=== PATIENT | female | born 1985 | race Caucasian/White ===

== ENCOUNTER → 2017-10-15 | Outpatient (CLI) | payer MEDICARE, MEDICAID ==
[2015-04-20 10:33] VITALS: BMI 37.1
[~2017-10-15] MED LIST: ACET-2031 PO; AMOX-559 PO; AZIT-101 PO; AZIT500V14 PO; CHOL10005 PO; CLOZ100T PO; CLOZ100T14 PO; CLOZ100T37 PO; DESM0.2T15 PO; DOCU-202 PO; DOCU100T13 PO; ESOM20CA31 PO; ETHI1TAB PO; HYD2 PO; HYDR2TAB4 PO; HYDR2TAB42 PO; HYDR2TAB74 PO; IBU800 PO; IBUP800T37 PO; LINA145C PO; LOR1 PO; LOR5/325 PO; LORA-633 PO; MED10 PO; METO5TAB75 PO; MULT-1379 PO; OMEG500C7 PO; ONDA-2 PO; ONDA4TAB PO; ONDA4TAB97 PO; ONDA8TAB98 PO; PRE20 PO; PRED20TA6 PO; PROM-110 PO; PROM25SU9 RC; TRAM-420 PO; [UNRECOGNIZED DRUG - CODE] PO; [UNRECOGNIZED DRUG - CODE] PO; [UNRECOGNIZED DRUG - CODE] PO; [UNRECOGNIZED DRUG - CODE] PO
[2017-10-15 15:41] LABS: PLATELET COUNT, AUTOMATED 247 K/uL (150-450)
== END ==
LOC: LAB 14:50
PROVIDERS: ATTEND Registered Nurse Psychiatric/Mental Health
DX: F25.1 Schizoaffective disorder, depressive type (principal)
CPT/HCPCS: 36415; 85025

== ENCOUNTER → 2017-11-17 | Outpatient (CLI) | payer MEDICARE, MEDICAID ==
[2015-04-20 10:33] VITALS: BMI 37.1
[2017-11-17 11:34] LABS: PLATELET COUNT, AUTOMATED 278 K/uL (150-450)
[2017-11-17 11:59] LABS: LDL CHOLESTEROL 80 mg/dl
== END ==
LOC: LAB 10:36
PROVIDERS: ATTEND Psychiatry & Neurology Psychiatry
DX: Z51.81 Encounter for therapeutic drug level monitoring (principal); Z79.899 Other long term (current) drug therapy; E66.9 Obesity, unspecified
CPT/HCPCS: 36415; 82040; 82247; 82310; 82374; 82435; 82465; 82565; 82947; 83036; 83718; 84075; 84132; 84155; 84295; 84439; 84443; 84450; 84460; 84478; 84481; 84520; 85025

== ENCOUNTER → 2017-11-17 | Outpatient (CLI) | payer MEDICARE, MEDICAID ==
[2015-04-20 10:33] VITALS: BMI 37.1
== END ==
LOC: LAB 10:27
PROVIDERS: ATTEND Registered Nurse Psychiatric/Mental Health
DX: F25.1 Schizoaffective disorder, depressive type (principal)

== ENCOUNTER → 2017-12-12 | Outpatient (CLI) | payer MEDICARE, MEDICAID ==
[2015-04-20 10:33] VITALS: BMI 37.1
== END ==
LOC: LAB 09:33
PROVIDERS: ATTEND Registered Nurse Psychiatric/Mental Health
DX: F25.1 Schizoaffective disorder, depressive type (principal)
CPT/HCPCS: 36415; 85027

== ENCOUNTER → 2018-01-09 | Outpatient (CLI) | payer MEDICARE, MEDICAID ==
[2015-04-20 10:33] VITALS: BMI 37.1
[2018-01-09 16:11] LABS: PLATELET COUNT, AUTOMATED 267 K/uL (150-450)
== END ==
LOC: LAB 15:47
PROVIDERS: ATTEND Psychiatry & Neurology Psychiatry
DX: Z51.81 Encounter for therapeutic drug level monitoring (principal); Z79.899 Other long term (current) drug therapy
CPT/HCPCS: 36415; 85025

== ENCOUNTER → 2018-02-05 | Outpatient (CLI) | payer MEDICARE, MEDICAID ==
[2015-04-20 10:33] VITALS: BMI 37.1
[2018-02-05 14:15] LABS: PLATELET COUNT, AUTOMATED 264 K/uL (150-450)
== END ==
LOC: LAB 13:51
PROVIDERS: ATTEND Psychiatry & Neurology Psychiatry
DX: Z79.899 Other long term (current) drug therapy (principal); F25.1 Schizoaffective disorder, depressive type
CPT/HCPCS: 36415; 85025

== ENCOUNTER → 2018-03-10 | Outpatient (CLI) | payer MEDICARE, MEDICAID ==
[2015-04-20 10:33] VITALS: BMI 37.1
[2018-03-10 13:38] LABS: PLATELET COUNT, AUTOMATED 251 K/uL (150-450)
== END ==
LOC: LAB 08:00
PROVIDERS: ATTEND Psychiatry & Neurology Psychiatry
DX: F25.1 Schizoaffective disorder, depressive type (principal)
CPT/HCPCS: 36415; 85025

== ENCOUNTER → 2018-04-10 | Outpatient (CLI) | payer MEDICARE, MEDICAID ==
[2015-04-20 10:33] VITALS: BMI 37.1
[2018-04-10 12:14] LABS: PLATELET COUNT, AUTOMATED 255 K/uL (150-450)
== END ==
LOC: LAB 11:36
PROVIDERS: ATTEND Psychiatry & Neurology Psychiatry
DX: F25.1 Schizoaffective disorder, depressive type (principal); Z79.899 Other long term (current) drug therapy
CPT/HCPCS: 36415; 85025

== ENCOUNTER → 2018-05-07 | Outpatient (CLI) | payer MEDICARE, MEDICAID ==
[2015-04-20 10:33] VITALS: BMI 37.1
[2018-05-07 13:38] LABS: PLATELET COUNT, AUTOMATED 272 K/uL (150-450)
== END ==
LOC: LAB 13:17
PROVIDERS: ATTEND Psychiatry & Neurology Psychiatry
DX: F25.1 Schizoaffective disorder, depressive type (principal); Z79.899 Other long term (current) drug therapy
CPT/HCPCS: 36415; 85025

== ENCOUNTER → 2018-06-29 | Outpatient (CLI) | payer MEDICARE, MEDICAID ==
[2015-04-20 10:33] VITALS: BMI 37.1
[2018-06-29 10:15] LABS: PLATELET COUNT, AUTOMATED 246 K/uL (150-450)
== END ==
LOC: LAB 10:02
PROVIDERS: ATTEND Psychiatry & Neurology Psychiatry
DX: F25.1 Schizoaffective disorder, depressive type (principal); Z79.899 Other long term (current) drug therapy
CPT/HCPCS: 36415; 85025

== ENCOUNTER → 2018-07-31 | Outpatient (CLI) | payer MEDICARE, MEDICAID ==
[2015-04-20 10:33] VITALS: BMI 37.1
[2018-07-31 09:40] LABS: PLATELET COUNT, AUTOMATED 246 K/uL (150-450)
== END ==
LOC: LAB 09:05
PROVIDERS: ATTEND Psychiatry & Neurology Psychiatry
DX: F25.1 Schizoaffective disorder, depressive type (principal); Z79.899 Other long term (current) drug therapy
CPT/HCPCS: 36415; 85025

== ENCOUNTER → 2018-08-28 | Outpatient (CLI) | payer MEDICARE, MEDICAID ==
[2015-04-20 10:33] VITALS: BMI 37.1
[2018-08-28 14:23] LABS: PLATELET COUNT, AUTOMATED 255 K/uL (150-450)
== END ==
LOC: LAB 11:59
PROVIDERS: ATTEND Psychiatry & Neurology Psychiatry
DX: Z51.81 Encounter for therapeutic drug level monitoring (principal); F25.1 Schizoaffective disorder, depressive type; Z79.899 Other long term (current) drug therapy
CPT/HCPCS: 36415; 85025

== ENCOUNTER → 2018-09-24 | Outpatient (CLI) | payer MEDICARE, MEDICAID ==
[2015-04-20 10:33] VITALS: BMI 37.1
[2018-09-24 12:59] LABS: PLATELET COUNT, AUTOMATED 271 K/uL (150-450)
== END ==
LOC: LAB 12:32
PROVIDERS: ATTEND Psychiatry & Neurology Psychiatry
DX: F25.1 Schizoaffective disorder, depressive type (principal); Z79.899 Other long term (current) drug therapy
CPT/HCPCS: 36415; 85025

== ENCOUNTER 2018-10-24 14:20 | Emergency (ER) | payer MEDICARE, MEDICAID ==
[2015-04-20 10:33] VITALS: Wt 113.4 kg
--- NOTE | 2018-10-24 14:25 | ER Report ---
History and Physical Time Seen By MD: 14:25 HPI/ROS CHIEF COMPLAINT: Midsternal chest pain with radiation to the lateral lower ribs HISTORY OF PRESENT ILLNESS: Patient is a 33-year-old female here with complaints of midsternal chest pain, radiation to the bilateral lower lateral ribs, intermittent shortness of breath. Patient reports that she was diagnosed with costochondritis however she has been taking Aleve without relief of symptoms. King aceves reports that her pain has been present for the last several days and has not been improving. She is noted to be tachycardic at 115 at time of evaluation. Patient is a history of schizoaffective disorder, but denies DVT, PE, cardiac disease. REVIEW OF SYSTEMS: Constitutional: No fever, no chills. Eyes: No discharge. ENT: No sore throat. Cardiovascular: + chest pain, rapid heart rate Respiratory: No cough, + shortness of breath. Gastrointestinal: No abdominal pain, no vomiting. Genitourinary: No hematuria. Musculoskeletal: No back pain. Skin: No rashes. Neurological: No headache. Allergies: Coded Allergies: codeine (Verified Allergy, Intermediate, NAUSEA, ITCHING, 07/24/17) hydrocodone (Unverified Allergy, Intermediate, ITCHING, NAUSEA, 07/24/17) oxycodone (Unverified Allergy, Intermediate, ITCHING, NAUSEA, 07/24/17) propoxyphene (Verified Allergy, Intermediate, ITCHING, NAUSEA, 07/24/17) hydromorphone (Verified Allergy, Mild, nausea, emesis, itching, 08/11/17) Home Meds Active Scripts Naproxen (NAPROXEN) 250 Mg Tablet, 500 MG PO BID, #30 TAB Prov:JONY JENSEN DO 10/24/18 Prednisone (PREDNISONE) 20 Mg Tablet, 60 MG PO QDAY for 4 Days, #12 TAB Prov:JONY JENSEN DO 10/24/18 Tramadol Hcl (TRAMADOL HCL) 50 Mg Tablet, 50 MG PO Q6H PRN for PAIN, #10 TAB 0 Refills Prov:JONY JENSEN DO 10/24/18 Reported Medications Escitalopram Oxalate (LEXAPRO) 20 Mg Tablet, PO QDAY, TAB 10/24/18 Linaclotide (LINZESS) 145 Mcg Capsule, 145 MCG PO QDAY, CAPSULE 01/03/17 Esomeprazole Magnesium (NEXIUM) 20 Mg Capsule.dr, 1 CAP PO QDAY, CAP 03/29/15 Clozapine (FAZACLO 100 MG TABDP) 100 Mg Tabdp, 500 MG PO QHS 07/10/12 Discontinued Scripts Hydromorphone Hcl (DILAUDID) 2 Mg Tablet, 2 MG PO Q6H PRN for PAIN, #6 TAB-CAP Prov:MICHAEL NG DIRECTOR PEDIATRIC 07/24/17 Ondansetron (ZOFRAN ODT) 4 Mg Tab.rapdis, 4 MG PO Q6H PRN for NAUSEA/VOMITING, #20 TAB.ANN MARIE Prov:MICHAEL NG DIRECTOR PEDIATRIC 07/24/17 Hx Smoking: No Smoking Status: Never Smoker Exposure to Second Hand Smoke?: No Hx Substance Use Disorder: No Hx Alcohol Use: No Constitutional Vital Sign - Last 24 Hours 10/24/18 14:25 Pulse 117 Resp 20 B/P (MAP) 126/83 Pulse Ox 93 Physical Exam General Appearance: The patient is alert, has no immediate need for airway protection and no signs of toxicity. No acute distress Eyes: Pupils equal and round no pallor or injection. ENT, Mouth: Mucous membranes are moist. Respiratory: There are no retractions, lungs are clear to auscultation. Cardiovascular: Rapid heart rate and regular rhythm. + Midsternal chest wall tenderness on palpation Gastrointestinal: Abdomen is soft and non tender, no masses, bowel sounds normal. Neurological: No focal neurological deficits Skin: Warm and dry, no rashes. Musculoskeletal: Neck is supple non tender. Extremities are nontender, nonswollen and have full range of motion. DIFFERENTIAL DIAGNOSIS: After history and physical exam differential diagnosis was considered for chest pain including but not limited to myocardial ischemia, pericarditis pulmonary embolus, chest wall pain, pleural inflammation and pulmonary infectious causes. Medical Decision Making Data Points Result Diagram: 10/24/18 1432 10/24/18 1432 Laboratory Hematology Test 10/24/18 14:32 Red Blood Count 4.64 M/uL (4.17-5.56) Mean Corpuscular Volume 79.9 fL (80.0-96.0) Mean Corpuscular Hemoglobin 26.0 pg (26.0-33.0) Mean Corpuscular Hemoglobin Concent 32.6 g/dL (32.0-36.0) Red Cell Distribution Width 18.2 % (11.5-14.5) Mean Platelet Volume 7.9 fL (7.2-11.1) Neutrophils (%) (Auto) 54.5 % (39.4-72.5) Lymphocytes (%) (Auto) 36.4 % (17.6-49.6) Monocytes (%) (Auto) 8.2 % (4.1-12.4) Eosinophils (%) (Auto) 0.2 % (0.4-6.7) Basophils (%) (Auto) 0.7 % (0.3-1.4) Nucleated RBC Relative Count (auto) 0.2 /100WBC Neutrophils # (Auto) 3.5 K/uL (2.0-7.4) Lymphocytes # (Auto) 2.3 K/uL (1.3-3.6) Monocytes # (Auto) 0.5 K/uL (0.3-1.0) Eosinophils # (Auto) 0.0 K/uL (0.0-0.5) Basophils # (Auto) 0.0 K/uL (0.0-0.1) Nucleated RBC Absolute Count (auto) 0.01 K/uL D-Dimer Quantitative (PE/DVT) 0.70 ug/ml (0-0.50) Sodium Level 142 mmol/L (137-145) Potassium Level 4.4 mmol/L (3.5-5.0) Chloride Level 111 mmol/L (98-107) Carbon Dioxide Level 22 mmol/L (22-31) Blood Urea Nitrogen 11 mg/dl (7-18) Creatinine 0.60 mg/dl (0.52-1.04) Glomerular Filtration Rate Calc > 60.0 Random Glucose 123 mg/dl (75-110) Calcium Level 8.5 mg/dl (8.4-10.2) Total Bilirubin 0.2 mg/dl (0.2-1.3) Aspartate Amino Transf (AST/SGOT) 26 U/L (0-35) Alanine Aminotransferase (ALT/SGPT) 25 U/L (0-56) Alkaline Phosphatase 208 U/L (0-126) Troponin I < 0.012 ng/ml Total Protein 7.1 g/dl (6.3-8.2) Albumin 4.0 g/dl (3.5-5.0) Chemistry Test 10/24/18 14:32 White Blood Count 6.4 k/uL (4.5-11.0) Red Blood Count 4.64 M/uL (4.17-5.56) Hemoglobin 12.1 g/dL (12.0-16.0) Hematocrit 37.1 % (34.0-47.0) Mean Corpuscular Volume 79.9 fL (80.0-96.0) Mean Corpuscular Hemoglobin 26.0 pg (26.0-33.0) Mean Corpuscular Hemoglobin Concent 32.6 g/dL (32.0-36.0) Red Cell Distribution Width 18.2 % (11.5-14.5) Platelet Count 292 K/uL (150-450) Mean Platelet Volume 7.9 fL (7.2-11.1) Neutrophils (%) (Auto) 54.5 % (39.4-72.5) Lymphocytes (%) (Auto) 36.4 % (17.6-49.6) Monocytes (%) (Auto) 8.2 % (4.1-12.4) Eosinophils (%) (Auto) 0.2 % (0.4-6.7) Basophils (%) (Auto) 0.7 % (0.3-1.4) Nucleated RBC Relative Count (auto) 0.2 /100WBC Neutrophils # (Auto) 3.5 K/uL (2.0-7.4) Lymphocytes # (Auto) 2.3 K/uL (1.3-3.6) Monocytes # (Auto) 0.5 K/uL (0.3-1.0) Eosinophils # (Auto) 0.0 K/uL (0.0-0.5) Basophils # (Auto) 0.0 K/uL (0.0-0.1) Nucleated RBC Absolute Count (auto) 0.01 K/uL D-Dimer Quantitative (PE/DVT) 0.70 ug/ml (0-0.50) Glomerular Filtration Rate Calc > 60.0 Calcium Level 8.5 mg/dl (8.4-10.2) Total Bilirubin 0.2 mg/dl (0.2-1.3) Aspartate Amino Transf (AST/SGOT) 26 U/L (0-35) Alanine Aminotransferase (ALT/SGPT) 25 U/L (0-56) Alkaline Phosphatase 208 U/L (0-126) Troponin I < 0.012 ng/ml Total Protein 7.1 g/dl (6.3-8.2) Albumin 4.0 g/dl (3.5-5.0) Coagulation Test 10/24/18 14:32 D-Dimer Quantitative (PE/DVT) 0.70 ug/ml EKG/Imaging EKG Interpretation 12 lead EKG: Sinus tachycardia, rate 111, QTC 443, no ischemic changes. Rhythm: Sinus tachycardia [place]: normal QRS: normal ST segments: normal Monitor Interpretation: Sinus Tachycardia Imaging Location: [facility] Patient: Alla Echeverria : 1985 Visit/Account:[id number] Date of Sevice: 10/24/2018 CHEST PA LAT COMPARISON: 07/24/2017 HISTORY: Chest Pain FINDINGS: CARDIAC/VASC: No cardiac silhouette abnormality or cardiomegaly. Unremarkable pulmonary vasculature. MEDIASTINUM: No visible mass or adenopathy. LUNGS/PLEURA: No pneumothorax. No significant pulmonary parenchymal abnormalities. No effusion or pleural thickening. BONES: No fracture or visible bony lesion. OTHER:Negative. IMPRESSION: No acute cardiopulmonary process. ED Course/Re-evaluation Clinical Indication for ER IV: Hydration, IV Access ED Course Patient is a 33-year-old female here with complaints of chest pain, which she describes as being caused by her costochondritis which she has recurrent ep isodes periodically. Patient describes the pain as midsternal with radiation to lateral ribs bilaterally. She reports that the pain is been ongoing for the past several days, is tender on palpation of the chest and is currently not relieved by naproxen. EKG showed sinus tachycardia with a rate of 111. Chest x-ray showed no acute pulmonary findings. Patient was given intravenous Tylenol, normal ryder ine bolus, and prednisone. D-dimer came back elevated at 0.[address] PE study which was negative for pulmonary embolism. Patient was placed on a total of a 5 day course of prednisone 60 mg, NSAIDs not to exceed 500 mg of naproxen twice daily, tramadol for breakthrough pain. Decision to Disposition Date: Oct 24, 2018 Decision to Disposition Time: 16:39 Depart Departure Latest Vital Signs Vital Signs Date Time Temp Pulse Resp B/P (MAP) Pulse Ox O2 Delivery O2 Flow Rate FiO2 10/24/18 14:25 117 20 126/83 93 Impression: Primary Impression: Chest wall pain Condition: Improved Disposition: HOME OR SELF-CARE Referrals: JANES PACHECO DO (PCP) New Scripts Naproxen (NAPROXEN) 250 Mg Tablet 500 MG PO BID, #30 TAB Prov: JONY JENSEN DO 10/24/18 Prednisone (PREDNISONE) 20 Mg Tablet 60 MG PO QDAY for 4 Days, #12 TAB Prov: JONY JENSEN DO 10/24/18 Tramadol Hcl (TRAMADOL HCL) 50 Mg Tablet 50 MG PO Q6H PRN for PAIN, #10 TAB 0 Refills Prov: JONY JENSEN DO 10/24/18 Patient Instructions: Chest Wall Pain (ED) Additional Instructions: Please drink plenty of water. Please take 60 mg of prednisone daily for the next 4 days for a complete course of 5 days of prednisone burst therapy. You may take naproxen up to 500 mg twice daily please do not exceed this dose. He may take 1 tramadol every 8 hours as needed for breakthrough pain control. Please follow up closely with her family doctor. Please return promptly if he develops chest pain, difficulty breathing, fevers or chills, cough, nausea, vomiting JONY JENSEN DO Oct 24, 2018 14:25
[2018-10-24] MEDS ORDERED: ESCI20TA38 PO (14:30)
[2018-10-24] MEDS ORDERED: NS(*) 0.9% 1000 ML BAG 1,000 ML IV ONE (14:44)
[2018-10-24] MEDS ORDERED: ACETAMINOPHEN(*)1000 MG/100 ML 100 ML IVPB ONE (14:45)
--- NOTE | 2018-10-24 14:49 | EKG ---
FACILITY: [facility] PATIENT NAME: ROSENDA MIRANDA : [id number] MR: [id number] V: [id number] EXAM DATE: ORDERING PHYSICIAN: JONY JENSEN TECHNOLOGIST: SONIA Test Reason : HIGH HR Blood Pressure : / mmHG Vent. Rate : 111 BPM Atrial Rate : 111 BPM P-R Int : 136 ms QRS Dur : 078 ms QT Int : 326 ms P-R-T Axes : 027 014 021 degrees QTc Int : 443 ms Sinus tachycardia Nonspecific T wave abnormality Abnormal ECG When compared with ECG of 24-JUL-2017 12:04, No significant change was found Confirmed by BRENT SALAZAR ([id number]) on 10/24/2018 8:04:51 PM Referred By: CAMILA Confirmed By:BRENT SALAZAR
[2018-10-24 14:51] LABS: PLATELET COUNT, AUTOMATED 292 K/uL (150-450)
--- NOTE | 2018-10-24 15:23 | RADIOLOGY IMAGING REPORT ---
FACILITY: [facility] [place] PATIENT NAME: Alla Echeverria : 1985 MR: [id number] V: [id number] EXAM DATE: ORDERING PHYSICIAN: JONY JENSEN TECHNOLOGIST: Location: [facility] - [place], [place] Patient: Alla Echeverria : 1985 Visit/Account:[id number] Date of Sevice: 10/24/2018 CHEST PA LAT COMPARISON: 07/24/2017 HISTORY: Chest Pain FINDINGS: CARDIAC/VASC: No cardiac silhouette abnormality or cardiomegaly. Unremarkable pulmonary vasculatu re. MEDIASTINUM: No visible mass or adenopathy. LUNGS/PLEURA: No pneumothorax. No significant pulmonary parenchymal abnormalities. No effusion or p leural thickening. BONES: No fracture or visible bony lesion. OTHER:Negative. IMPRESSION: No acute cardiopulmonary process. Report Dictated By: Eddie Lopez at 10/24/2018 3:18 PM Report E-Signed By: Eddie Lopez at 10/24/2018 3:19 PM [id number]
[2018-10-24] MEDS ORDERED: predniSONE 20 MG TAB PO ONE (15:25)
[2018-10-24] MEDS ORDERED: IOPAMIDOL 76% 100 ML INFUS BTL 100 ML ONE (16:04)
[2018-10-24] MEDS ORDERED: NS(*) 0.9% 50 ML BAG 50 ML ONE (16:04)
--- NOTE | 2018-10-24 16:31 | RADIOLOGY IMAGING REPORT ---
FACILITY: [facility] [place] PATIENT NAME: Alla Echeverria : 1985 MR: [id number] V: [id number] EXAM DATE: ORDERING PHYSICIAN: JONY JENSEN TECHNOLOGIST: [place] [facility] [place] Alla Echeverria : 1985 Visit/Account:[id number] Date of Sevice: 10/24/2018 EXAMINATION: CTA of the chest with IV contrast HISTORY: Chest pain, shortness of breath. TECHNIQUE: Pulmonary embolus protocol - Thin axial CT images of the chest were obtained with IV con trast during maximal pulmonary arterial opacification. Reconstruction of the source data includes mul tiplanar 2D coronal and sagittal reconstructed images, and 3D coronal and sagittal MIP images. Repres entative images have been stored on PACS. One of the following dose optimization techniques was utilized in the performance of this exam: Autom ated exposure control; adjustment of the mA and/or kV according to the patient's size; or use of an i terative reconstruction technique. Specific details can be referenced in the facility's radiology C T exam operational policy. Contrast: 90 mL of IV Isovue-370. COMPARISON: 07/24/2017. FINDINGS: Pulmonary arteries: The pulmonary arteries are well opacified, without suspicious filling defect. Heart, aorta, and great vessels: Normal caliber thoracic aorta, without aneurysm or dissection. Norm al heart size. No pericardial effusion. Lungs and pleura: Several subcentimeter pulmonary nodules remain stable. No new focal consolidation . No pleural effusion or pneumothorax. The central airways are patent. Mediastinum and kary: Negative. 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 Chest wall: Negative. Bones: Negative. IMPRESSION: 1. No evidence of pulmonary embolism. 2. No other acute findings in the chest. Report Dictated By: Ke Sharma MD at 10/24/2018 4:18 PM Report E-Signed By: Ke Sharma MD at 10/24/2018 4:27 PM WSN:[id number]
[2018-10-24] MEDS ORDERED: PRED20TA6 PO (16:46)
[2018-10-24] MEDS ORDERED: TRAM-420 PO (16:46)
[2018-10-24] MEDS ORDERED: NAPR-744 PO (16:46)
[2018-10-24 16:54] VITALS: BP 128/79
== END 2018-10-24 16:55 | disposition home or self-care (01) ==
LOC: ER 14:26
DX: R07.89 Other chest pain (principal); R00.0 Tachycardia, unspecified
CPT/HCPCS: 71046; 71275; 84484; 85025; 85379; 93005; 96361; 96365; 99284; J0131; J7030; J7050; J7512; Q9967; 82040; 82247; 82310; 82374; 82435; 82565; 82947; 84075; 84132; 84155; 84295; 84450; 84460; 84520

== ENCOUNTER → 2018-10-26 | Outpatient (CLI) | payer MEDICARE, MEDICAID ==
[2015-04-20 10:33] VITALS: BMI 37.1
[~2018-10-26] MED LIST changes: +ESCI20TA38 PO; +NAPR-744 PO
[2018-10-26 14:22] LABS: PLATELET COUNT, AUTOMATED 273 K/uL (150-450)
== END ==
LOC: LAB 14:04
PROVIDERS: ATTEND Psychiatry & Neurology Psychiatry
DX: F25.1 Schizoaffective disorder, depressive type (principal); Z79.899 Other long term (current) drug therapy
CPT/HCPCS: 36415; 85025

== ENCOUNTER 2018-10-31 16:44 | Emergency (ER) | payer MEDICARE, MEDICAID ==
[2015-04-20 10:33] VITALS: Wt 113.4 kg
--- NOTE | 2018-10-31 16:46 | ER Report ---
History and Physical Time Seen By MD: 16:46 HPI/ROS CHIEF COMPLAINT: Chest pain HISTORY OF PRESENT ILLNESS: Patient is a 33-year-old female here with complaints of recurrent episodes of chest pain which is been ongoing on a chronic basis. Patient was evaluated here on the at which time she had a negative CT PE, negative troponin and was sent home on prednisone which she was noncompliant with and tramadol which she reports has not been giving her relief along with NSAIDs. Patient reports mild dyspnea, radiation of pain into her neck and back. She had been diagnosed with costochondritis in the past. Patient was evaluated by her PCP yesterday and advised to come to the ED if her symptoms worsen. Patient is afebrile, hemodynamically stable with no cough and no acute distress. REVIEW OF SYSTEMS: Constitutional: No fever, no chills. Eyes: No discharge. ENT: No sore throat. Cardiovascular: + mid sternal chest pain, no palpitations. Respiratory: No cough, + shortness of breath. Gastrointestinal: No abdominal pain, no vomiting. Genitourinary: No hematuria. Musculoskeletal: No back pain. Skin: No rashes. Neurological: No headache. Allergies: Coded Allergies: codeine (Verified Allergy, Intermediate, NAUSEA, ITCHING, 10/31/18) hydrocodone (Unverified Allergy, Intermediate, ITCHING, NAUSEA, 10/31/18) oxycodone (Unverified Allergy, Intermediate, ITCHING, NAUSEA, 10/31/18) propoxyphene (Verified Allergy, Intermediate, ITCHING, NAUSEA, 10/31/18) hydromorphone (Verified Allergy, Mild, nausea, emesis, itching, 10/31/18) Home Meds Active Scripts Lidocaine (Lidocaine) 5 % Adh..patch, 1 ADH.PATCH TD QDAY PRN for PAIN, #30 ADH.PATCH Prov:JONY JENSEN DO 10/31/18 Diclofenac Sodium 1% Gel (VOLTAREN 1% GEL) 100 Gm Gel..gram., 2 GM TOP TID PRN for PAIN MDD 6 gram for 7 Days, #1 TUBE Prov:JONY JENSEN DO 10/31/18 Naproxen (NAPROXEN) 250 Mg Tablet, 500 MG PO BID, #30 TAB Prov:JONY JENSEN DO 10/24/18 Tramadol Hcl (TRAMADOL HCL) 50 Mg Tablet, 50 MG PO Q6H PRN for PAIN, #10 TAB 0 Refills Prov:JONY JENSEN DO 10/24/18 Reported Medications Nebivolol Hcl (BYSTOLIC) 5 Mg Tablet, 5 MG PO 10/31/18 Escitalopram Oxalate (LEXAPRO) 20 Mg Tablet, PO QDAY, TAB 10/24/18 Linaclotide (LINZESS) 145 Mcg Capsule, 145 MCG PO QDAY, CAPSULE 01/03/17 Esomeprazole Magnesium (NEXIUM) 20 Mg Capsule.dr, 1 CAP PO QDAY, CAP 03/29/15 Clozapine (FAZACLO 100 MG TABDP) 100 Mg Tabdp, 500 MG PO QHS 07/10/12 Discontinued Scripts Prednisone (PREDNISONE) 20 Mg Tablet, 60 MG PO QDAY for 4 Days, #12 TAB Prov:JONY JENSEN DO 10/24/18 Hx Smoking: No Smoking Status: Never Smoker Exposure to Second Hand Smoke?: No Hx Substance Use Disorder: No Hx Alcohol Use: No Constitutional Vital Sign - Last 24 Hours 10/31/18 10/31/18 10/31/18 10/31/18 16:49 16:51 17:00 17:14 Pulse 95 91 Resp 20 12 B/P (MAP) 135/83 135/83 (100) 120/90 (100) Pulse Ox 94 92 O2 Delivery Room Air 10/31/18 10/31/18 10/31/18 10/31/18 17:19 17:49 18:19 18:30 Pulse 90 86 86 Resp 18 14 19 B/P (MAP) 99/69 (79) Pulse Ox 92 92 92 10/31/18 10/31/18 10/31/18 10/31/18 18:35 18:50 19:05 19:20 Pulse 85 85 84 84 Resp 9 16 10 16 Pulse Ox 92 94 92 10/31/18 10/31/18 10/31/18 10/31/18 19:30 19:35 19:50 20:00 Pulse 84 85 Resp 15 7 B/P (MAP) 96/78 (84) 115/68 (84) Pulse Ox 92 95 10/31/18 10/31/18 10/31/18 20:05 20:10 20:25 Pulse 85 79 85 Resp 27 10 25 Pulse Ox 91 88 96 Physical Exam General Appearance: The patient is alert, has no immediate need for airway protection and no signs of toxicity. NAD Eyes: Pupils equal and round no pallor or injection. ENT, Mouth: Mucous membranes are moist. Respiratory: There are no retractions, lungs are clear to auscultation. Cardiovascular: Regular rate and rhythm. Gastrointestinal: Abdomen is soft and non tender, no masses, bowel sounds normal. Neurological: No focal deficits Skin: Warm and dry, no rashes. Musculoskeletal: Neck is supple non tender. Extremities are nontender, nonswollen and have full range of motion. DIFFERENTIAL DIAGNOSIS: After history and physical exam differential diagnosis was considered for chest pain including but not limited to myocardial ischemia, pericarditis pulmonary embolus, chest wall pain, pleural inflammation and pulmonary infectious causes. Medical Decision Making Data Points Result Diagram: 10/31/189 10/31/189 Laboratory Hematology Test 10/31/18 18:49 Red Blood Count 4.31 M/uL (4.17-5.56) Mean Corpuscular Volume 83.4 fL (80.0-96.0) Mean Corpuscular Hemoglobin 25.9 pg (26.0-33.0) Mean Corpuscular Hemoglobin Concent 31.0 g/dL (32.0-36.0) Red Cell Distribution Width 18.3 % (11.5-14.5) Mean Platelet Volume 8.0 fL (7.2-11.1) Neutrophils (%) (Auto) 52.6 % (39.4-72.5) Lymphocytes (%) (Auto) 39.0 % (17.6-49.6) Monocytes (%) (Auto) 7.6 % (4.1-12.4) Eosinophils (%) (Auto) 0.2 % (0.4-6.7) Basophils (%) (Auto) 0.6 % (0.3-1.4) Nucleated RBC Relative Count (auto) 0.1 /100WBC Neutrophils # (Auto) 4.7 K/uL (2.0-7.4) Lymphocytes # (Auto) 3.5 K/uL (1.3-3.6) Monocytes # (Auto) 0.7 K/uL (0.3-1.0) Eosinophils # (Auto) 0.0 K/uL (0.0-0.5) Basophils # (Auto) 0.1 K/uL (0.0-0.1) Nucleated RBC Absolute Count (auto) 0.00 K/uL Sodium Level 139 mmol/L (137-145) Potassium Level 4.6 mmol/L (3.5-5.0) Chloride Level 111 mmol/L (98-107) Carbon Dioxide Level 22 mmol/L (22-31) Blood Urea Nitrogen 12 mg/dl (7-18) Creatinine 0.70 mg/dl (0.52-1.04) Glomerular Filtration Rate Calc > 60.0 Random Glucose 89 mg/dl (75-110) Calcium Level 7.6 mg/dl (8.4-10.2) Total Bilirubin < 0.1 mg/dl (0.2-1.3) Aspartate Amino Transf (AST/SGOT) 17 U/L (0-35) Alanine Aminotransferase (ALT/SGPT) 33 U/L (0-56) Alkaline Phosphatase 174 U/L (0-126) Troponin I < 0.012 ng/ml Total Protein 6.4 g/dl (6.3-8.2) Albumin 3.7 g/dl (3.5-5.0) Chemistry Test 10/31/18 18:49 White Blood Count 8.9 k/uL (4.5-11.0) Red Blood Count 4.31 M/uL (4.17-5.56) Hemoglobin 11.2 g/dL (12.0-16.0) Hematocrit 35.9 % (34.0-47.0) Mean Corpuscular Volume 83.4 fL (80.0-96.0) Mean Corpuscular Hemoglobin 25.9 pg (26.0-33.0) Mean Corpuscular Hemoglobin Concent 31.0 g/dL (32.0-36.0) Red Cell Distribution Width 18.3 % (11.5-14.5) Platelet Count 276 K/uL (150-450) Mean Platelet Volume 8.0 fL (7.2-11.1) Neutrophils (%) (Auto) 52.6 % (39.4-72.5) Lymphocytes (%) (Auto) 39.0 % (17.6-49.6) Monocytes (%) (Auto) 7.6 % (4.1-12.4) Eosinophils (%) (Auto) 0.2 % (0.4-6.7) Basophils (%) (Auto) 0.6 % (0.3-1.4) Nucleated RBC Relative Count (auto) 0.1 /100WBC Neutrophils # (Auto) 4.7 K/uL (2.0-7.4) Lymphocytes # (Auto) 3.5 K/uL (1.3-3.6) Monocytes # (Auto) 0.7 K/uL (0.3-1.0) Eosinophils # (Auto) 0.0 K/uL (0.0-0.5) Basophils # (Auto) 0.1 K/uL (0.0-0.1) Nucleated RBC Absolute Count (auto) 0.00 K/uL Glomerular Filtration Rate Calc > 60.0 Calcium Level 7.6 mg/dl (8.4-10.2) Total Bilirubin < 0.1 mg/dl (0.2-1.3) Aspartate Amino Transf (AST/SGOT) 17 U/L (0-35) Alanine Aminotransferase (ALT/SGPT) 33 U/L (0-56) Alkaline Phosphatase 174 U/L (0-126) Troponin I < 0.012 ng/ml Total Protein 6.4 g/dl (6.3-8.2) Albumin 3.7 g/dl (3.5-5.0) ED Course/Re-evaluation ED Course Patient is a 33-year-old female here with recurrent episodes of chest pain, midsternal distribution with radiation to the neck and back. Patient was seen here on the for similar symptoms and was treated with anti-inflammatories, tramadol. Patient was also treated with prednisone however patient was noncompliant with this medication course. Patient reports of the last 24 hours having worsening episode of chest pain. Prior evaluation yielded a negative troponin, negative CT PE which was completed due to elevated d-dimer. Since patient's symptoms have not been alleviated by current treatment modalities, topical anesthetics and analgesics will be trialed in the outpatient setting in the case of an unremarkable workup. Chest x-ray, basic labs and a troponin were ordered to rule out ACS. Patient may need further cardiac workup if indicated after discussion with PCP. Close follow-up recommended. Return precautions provided.. Patient was signed out to Dr. Rain pending labs and final radiology read of chest x-ray. Scripts were written for 5% lidocaine patches, Voltaren topical gel. Decision to Disposition Date: Oct 31, 2018 Decision to Disposition Time: 18:00 Depart Departure Latest Vital Signs Vital Signs Date Time Temp Pulse Resp B/P (MAP) Pulse Ox O2 Delivery O2 Flow Rate FiO2 10/31/18 20:25 85 25 96 10/31/18 20:00 115/68 (84) 10/31/18 16:49 Room Air Impression: Primary Impression: Chest wall pain Condition: Improved Disposition: HOME OR SELF-CARE Referrals: JANES PACHECO DO (PCP) New Scripts Lidocaine (Lidocaine) 5 % Adh..patch 1 ADH.PATCH TD QDAY PRN for PAIN, #30 ADH.PATCH Prov: JONY JENSEN DO 10/31/18 Diclofenac Sodium 1% Gel (VOLTAREN 1% GEL) 100 Gm Gel..gram. 2 GM TOP TID PRN for PAIN MDD 6 gram for 7 Days, #1 TUBE Prov: JONY JENSEN DO 10/31/18 Patient Instructions: Costochondritis (ED) Additional Instructions: Please drink plenty of water. You may apply Voltaren gel up to 2 g up to 3 times a day as needed for musculoskeletal pain. You may also apply up to 3 lidocaine patches for a maximum of 12 hours daily as needed for topical relief of Pain. Please follow-up with your family doctor in the next 24-48 hours to discuss further treatment options for possible need for further outpatient evaluation. Please return promptly if you develop worsening pain, fevers, shortness of breath, nausea, vomiting. Your repeat chest x-ray today was unremarkable. Your repeat labs including cardiac enzyme were found to be negative. JONY JENSEN DO Oct 31, 2018 16:46
[2018-10-31] MEDS ORDERED: NS(*) 0.9% 1000 ML BAG 1,000 ML IV ONE (16:57)
[2018-10-31] MEDS ORDERED: ONDANSETRON 4 MG/2 ML VIAL IVP ONE (17:00)
[2018-10-31] MEDS ORDERED: KETOROLAC 30 MG/ML VIAL IVP ONE (17:00)
[2018-10-31] MEDS ORDERED: NEBI5TAB PO (17:07)
[2018-10-31] MEDS ORDERED: DICL100G39 TOP (17:42)
[2018-10-31] MEDS ORDERED: LIDO700A19 TD (17:42)
--- NOTE | 2018-10-31 18:25 | RADIOLOGY IMAGING REPORT ---
FACILITY: [facility] PATIENT NAME: Alla Echeverria : 1985 MR: [id number] V: [id number] EXAM DATE: ORDERING PHYSICIAN: JONY JENSEN TECHNOLOGIST: Location: Patient: Alla Echeverria : 1985 Visit/Account:[id number] Date of Sevice: 10/31/2018 2 VIEWS CHEST INDICATION: Chest pain. COMPARISON: 10/24/2018. FINDINGS: Cardiomediastinal silhouette and pulmonary vessels within normal limits. There is no focal infiltrate or lobar consolidation. There is no pneumothorax or pleural effusion. No nodule. Upper abdomen is unremarkable. No acute bony abnormality. IMPRESSION: 1. No acute cardiopulmonary process. Report Dictated By: Kyler Young at 10/31/2018 6:19 PM Report E-Signed By: Kyler Young at 10/31/2018 6:20 PM [id number]
[2018-10-31 19:00] LABS: PLATELET COUNT, AUTOMATED 276 K/uL (150-450)
[2018-10-31 20:00] VITALS: BP 115/68
== END 2018-10-31 20:31 | disposition home or self-care (01) ==
LOC: ER 16:58
DX: R07.89 Other chest pain (principal)
CPT/HCPCS: 36415; 84484; 85025; 96361; 96374; 96375; 99284; J1885; J2405; J7030; 71046; 82040; 82247; 82310; 82374; 82435; 82565; 82947; 84075; 84132; 84155; 84295; 84450; 84460; 84520

== ENCOUNTER → 2018-11-09 | Outpatient (CLI) | payer MEDICARE, MEDICAID ==
[2015-04-20 10:33] VITALS: BMI 37.1
[~2018-11-09] MED LIST changes: +DICL100G39 TOP; +LIDO700A19 TD; +NEBI5TAB PO
== END ==
LOC: US 01:46
PROVIDERS: ATTEND Family Medicine
DX: R00.0 Tachycardia, unspecified (principal)
CPT/HCPCS: 93306

== ENCOUNTER → 2018-11-17 | Outpatient (CLI) | payer MEDICARE, MEDICAID ==
[2015-04-20 10:33] VITALS: BMI 37.1
--- NOTE | 2018-11-19 15:18 | RT HOLTER TEST ---
FACILITY: [facility] PATIENT NAME: ROSENDA MIRANDA : [id number] MR: [id number] V: [id number] EXAM DATE: ORDERING PHYSICIAN: CELESTINE JUDGE TECHNOLOGIST: VARGHESE Hook-up date: 2018-11-17 13:12:00 Duration: 47:35:00 Test Indications: TACHYCARDIA Medications: [id number] QRS complexes 13 Ventricular ectopics which represent <1 % of total QRS comp. 1 Supraventricular ectopics which represent <1 % of total QRS comp. * Paced QRS complexes which represent % of total QRS comp. VENTRICULAR ECTOPY 13 Isolated 0 Bigeminal Cycles 0 Couplets 0 Runs 0 Beats in Runs * Beats LONGEST at * BPM at :: -- * Beats FASTEST at * BPM at :: -- SUPRAVENTRICULAR ECTOPY 1 Isolated 0 Couplets 0 Runs 0 Beats in Runs * Beats LONGEST at * BPM at :: -- * Beats FASTEST at * BPM at :: -- HEART RATES 72 MIN at 09:20:48 2018-11-19 102 AVG 133 MAX at 13:16:26 2018-11-17 LONGEST RR 0.872 secs at 11:27:58 2018-11-18 S-T LEVELS Channel 1 -12.800 mm MIN at 13:12:00 2018-11-17 -12.800 mm MAX at 13:12:00 2018-11-17 Channel 3 -12.800 mm MIN at 13:12:00 2018-11-17 -12.800 mm MAX at 13:12:00 2018-11-17 Very rare supraventricular ectopy. No couplets, triplets, or runs. Rare Ventricular ectopy. No couplets, triplets, or runs. Sinus tachycardia was noted frequently during the recording. Maximum HR was 133bpm. No bradycardia was recorded. No pauses were recorded. Diffuse T wave flattening/inversion was noted throughout recording. Confirmed by MANOHAR VICTOR ([id number]) on 11/19/2018 3:18:08 PM Referred By: Overread By: MANOHAR VICTOR
== END ==
LOC: RESP 06:57
PROVIDERS: ATTEND Family Medicine
DX: I49.3 Ventricular premature depolarization (principal)
CPT/HCPCS: 93225; 93226

== ENCOUNTER → 2018-11-23 | Outpatient (CLI) | payer MEDICARE, MEDICAID ==
[2015-04-20 10:33] VITALS: BMI 37.1
[2018-11-23 13:04] LABS: PLATELET COUNT, AUTOMATED 289 K/uL (150-450)
== END ==
LOC: LAB 12:10
PROVIDERS: ATTEND Psychiatry & Neurology Psychiatry
DX: F25.1 Schizoaffective disorder, depressive type (principal); Z79.899 Other long term (current) drug therapy
CPT/HCPCS: 36415; 85025

== ENCOUNTER 2018-11-26 19:27 | Emergency (ER) | payer MEDICARE, MEDICAID ==
[2015-04-20 10:33] VITALS: Wt 120.2 kg
--- NOTE | 2018-11-26 19:45 | ER Report ---
History and Physical Time Seen By MD: 19:45 Hx. of Stated Complaint: PT REPORTS CHEST PAIN IN UPPER MEDIAL CHEST WITH RADIATION TO RIGHT NECK. HPI/ROS CHIEF COMPLAINT: Chest pain HISTORY OF PRESENT ILLNESS: 33-year-old female patient presents to emergency room with complaint of chest pain. Patient states has been intermittently for weeks. She states the pain seems worse in the last couple hours. She states that she is shortness of. She denies any fevers or chills. She states the cough. Patient states it seems to be doing better or worse. She states that she has had this in the past. She has discussed this with her primary care provider who is working on getting her in with cardiology. Patient states she is also significant for heart is racing. She states that she suffered primary care provider yesterday that she had a heart rate of 120. REVIEW OF SYSTEMS: Respiratory: No cough, no dyspnea. Cardiovascular: As noted above Gastrointestinal: No vomiting, no abdominal pain. Musculoskeletal: No back pain. Allergies: Coded Allergies: codeine (Verified Allergy, Intermediate, NAUSEA, ITCHING, 11/26/18) hydrocodone (Unverified Allergy, Intermediate, ITCHING, NAUSEA, 11/26/18) oxycodone (Unverified Allergy, Intermediate, ITCHING, NAUSEA, 11/26/18) propoxyphene (Verified Allergy, Intermediate, ITCHING, NAUSEA, 11/26/18) hydromorphone (Verified Allergy, Mild, nausea, emesis, itching, 11/26/18) Home Meds Active Scripts Lidocaine (Lidocaine) 5 % Adh..patch, 1 PATCH TD DAILY, #10 PATCH apply in the morning and then remove 12 hours later. Prov:MICHAEL NG 11/26/18 Ketorolac Tromethamine (KETOROLAC TROMETHAMINE) 10 Mg Tab, 10 MG PO Q6H, #20 TAB Prov:MICHAEL NG 11/26/18 Ondansetron Hcl (ZOFRAN) 4 Mg Tablet, 4 MG PO Q6H PRN for NAUSEA/VOMITING, #20 TAB Prov:MICHAEL NG 11/26/18 Oxycodone Hcl/Acetaminophen (PERCOCET 5-325 MG TABLET) 1 Each Tablet, 1 EACH PO Q4-6H PRN for PAIN, #8 TAB Prov:MICHAEL NG 11/26/18 Lidocaine (Lidocaine) 5 % Adh..patch, 1 ADH.PATCH TD QDAY PRN for PAIN, #30 ADH.PATCH Prov:JONY JENSEN DO 10/31/18 Diclofenac Sodium 1% Gel (VOLTAREN 1% GEL) 100 Gm Gel..gram., 2 GM TOP TID PRN for PAIN MDD 6 gram for 7 Days, #1 TUBE Prov:JONY JENSEN DO 10/31/18 Naproxen (NAPROXEN) 250 Mg Tablet, 500 MG PO BID, #30 TAB Prov:JONY JENSEN DO 10/24/18 Tramadol Hcl (TRAMADOL HCL) 50 Mg Tablet, 50 MG PO Q6H PRN for PAIN, #10 TAB 0 R efills Prov:JONY JENSEN DO 10/24/18 Reported Medications Nebivolol Hcl (BYSTOLIC) 5 Mg Tablet, 5 MG PO 10/31/18 Escitalopram Oxalate (LEXAPRO) 20 Mg Tablet, PO QDAY, TAB 10/24/18 Linaclotide (LINZESS) 145 Mcg Capsule, 145 MCG PO QDAY, CAPSULE 01/03/17 Esomeprazole Magnesium (NEXIUM) 20 Mg Capsule.dr, 1 CAP PO QDAY, CAP 03/29/15 Clozapine (FAZACLO 100 MG TABDP) 100 Mg Tabdp, 500 MG PO QHS 07/10/12 Past Medical/Surgical History Patient has a past medical history of costochondritis, gastric reflux, cholecystitis, hernia, frequent UTI, chronic pelvic pain, right wrist fracture, back pain, schizoaffective disorder. Patient has a surgical history of hysterectomy, gastric bypass, cholecystectomy, appendectomy, tummy tuck, tonsillectomy, adenoidectomy. Patient has a family medical history of cancer, CAD, diabetes, psychiatric problems. Reviewed Nurses Notes: Yes Hx Smoking: No Smoking Status: Never Smoker Exposure to Second Hand Smoke?: No Hx Substance Use Disorder: No Hx Alcohol Use: No Constitutional Vital Sign - Last 24 Hours 11/26/18 11/26/18 11/26/18 11/26/18 19:32 19:32 19:42 19:57 Temp 98.1 Pulse 112 105 100 Resp 16 24 8 B/P (MAP) 119/80 119/80 (93) Pulse Ox 92 91 92 O2 Delivery Room Air 11/26/18 11/26/18 11/26/18 11/26/18 20:00 20:12 20:17 20:30 Pulse 97 96 Resp 22 84 B/P (MAP) 120/78 (92) 109/75 (86) Pulse Ox 91 91 11/26/18 11/26/18 11/26/18 11/26/18 20:32 20:45 20:47 21:00 Pulse 93 86 Resp 14 15 B/P (MAP) 108/80 (89) 103/82 (89) Pulse Ox 91 93 11/26/18 11/26/18 11/26/18 11/26/18 21:02 21:25 21:30 21:32 Pulse 92 84 Resp 17 16 B/P (MAP) 118/80 (93) 116/74 (88) Pulse Ox 92 91 11/26/18 11/26/18 11/26/18 21:47 22:00 22:15 Pulse 87 85 85 Resp 15 17 18 B/P (MAP) 108/70 (83) Pulse Ox 90 91 90 Physical Exam General Appearance: The patient is alert, has no immediate need for airway protection and no current signs of toxicity. Respiratory: Chest is tender to palpation on right side of the chest, lungs are clear to auscultation. Cardiac: regular rate and rhythm Gastrointestinal: Abdomen is soft and non tender, no masses, bowel sounds normal. Musculoskeletal: Neck: Neck is supple and non tender. Extremities have full range of motion and are non tender. Skin: No rashes or lesions. DIFFERENTIAL DIAGNOSIS: After history and physical exam differential diagnosis was considered for chest pain including but not limited to myocardial ischemia, pericarditis pulmonary embolus, chest wall pain, pleural inflammation and pulmonary infectious causes. Medical Decision Making Data Points Result Diagram: 11/26/18 1950 11/26/18 1950 Laboratory Hematology Test 11/26/18 19:50 11/26/18 20:10 Red Blood Count 4.55 M/uL (4.17-5.56) Mean Corpuscular Volume 82.6 fL (80.0-96.0) Mean Corpuscular Hemoglobin 27.1 pg (26.0-33.0) Mean Corpuscular Hemoglobin Concent 32.8 g/dL (32.0-36.0) Red Cell Distribution Width 18.7 % (11.5-14.5) Mean Platelet Volume 8.3 fL (7.2-11.1) Neutrophils (%) (Auto) 54.1 % (39.4-72.5) Lymphocytes (%) (Auto) 39.7 % (17.6-49.6) Monocytes (%) (Auto) 5.3 % (4.1-12.4) Eosinophils (%) (Auto) 0.6 % (0.4-6.7) Basophils (%) (Auto) 0.3 % (0.3-1.4) Nucleated RBC Relative Count (auto) 0.0 /100WBC Neutrophils # (Auto) 4.5 K/uL (2.0-7.4) Lymphocytes # (Auto) 3.3 K/uL (1.3-3.6) Monocytes # (Auto) 0.4 K/uL (0.3-1.0) Eosinophils # (Auto) 0.1 K/uL (0.0-0.5) Basophils # (Auto) 0.0 K/uL (0.0-0.1) Nucleated RBC Absolute Count (auto) 0.00 K/uL D-Dimer Quantitative (PE/DVT) 0.85 ug/ml (0-0.50) Sodium Level 138 mmol/L (137-145) Potassium Level 4.0 mmol/L (3.5-5.0) Chloride Level 105 mmol/L (98-107) Carbon Dioxide Level 23 mmol/L (22-31) Blood Urea Nitrogen 13 mg/dl (7-18) Creatinine 0.70 mg/dl (0.52-1.04) Glomerular Filtration Rate Calc > 60.0 Random Glucose 213 mg/dl (75-110) Calcium Level 8.8 mg/dl (8.4-10.2) Total Bilirubin 0.1 mg/dl (0.2-1.3) Aspartate Amino Transf (AST/SGOT) 18 U/L (0-35) Alanine Aminotransferase (ALT/SGPT) 25 U/L (0-56) Alkaline Phosphatase 204 U/L (0-126) Troponin I < 0.012 ng/ml Total Protein 7.2 g/dl (6.3-8.2) Albumin 4.4 g/dl (3.5-5.0) Human Chorionic Gonadotropin, Qual Negative (NEGATIVE) Influenza Virus Type A (PCR) Negative (NEGATIVE) Influenza Virus Type B (PCR) Negative (NEGATIVE) Chemistry Test 11/26/18 19:50 11/26/18 20:10 White Blood Count 8.4 k/uL (4.5-11.0) Red Blood Count 4.55 M/uL (4.17-5.56) Hemoglobin 12.3 g/dL (12.0-16.0) Hematocrit 37.6 % (34.0-47.0) Mean Corpuscular Volume 82.6 fL (80.0-96.0) Mean Corpuscular Hemoglobin 27.1 pg (26.0-33.0) Mean Corpuscular Hemoglobin Concent 32.8 g/dL (32.0-36.0) Red Cell Distribution Width 18.7 % (11.5-14.5) Platelet Count 290 K/uL (150-450) Mean Platelet Volume 8.3 fL (7.2-11.1) Neutrophils (%) (Auto) 54.1 % (39.4-72.5) Lymphocytes (%) (Auto) 39.7 % (17.6-49.6) Monocytes (%) (Auto) 5.3 % (4.1-12.4) Eosinophils (%) (Auto) 0.6 % (0.4-6.7) Basophils (%) (Auto) 0.3 % (0.3-1.4) Nucleated RBC Relative Count (auto) 0.0 /100WBC Neutrophils # (Auto) 4.5 K/uL (2.0-7.4) Lymphocytes # (Auto) 3.3 K/uL (1.3-3.6) Monocytes # (Auto) 0.4 K/uL (0.3-1.0) Eosinophils # (Auto) 0.1 K/uL (0.0-0.5) Basophils # (Auto) 0.0 K/uL (0.0-0.1) Nucleated RBC Absolute Count (auto) 0.00 K/uL D-Dimer Quantitative (PE/DVT) 0.85 ug/ml (0-0.50) Glomerular Filtration Rate Calc > 60.0 Calcium Level 8.8 mg/dl (8.4-10.2) Total Bilirubin 0.1 mg/dl (0.2-1.3) Aspartate Amino Transf (AST/SGOT) 18 U/L (0-35) Alanine Aminotransferase (ALT/SGPT) 25 U/L (0-56) Alkaline Phosphatase 204 U/L (0-126) Troponin I < 0.012 ng/ml Total Protein 7.2 g/dl (6.3-8.2) Albumin 4.4 g/dl (3.5-5.0) Human Chorionic Gonadotropin, Qual Negative (NEGATIVE) Influenza Virus Type A (PCR) Negative (NEGATIVE) Influenza Virus Type B (PCR) Negative (NEGATIVE) Coagulation Test 11/26/18 19:50 D-Dimer Quantitative (PE/DVT) 0.85 ug/ml EKG/Imaging EKG Interpretation 12 lead EKG: Rhythm: Sinus tachycardia with with a ventricular rate of 105 beats per minute [place]: normal QRS: normal ST segments: Nonspecific ST abnormality Imaging CT ANGIOGRAM OF THE CHEST WITH INTRAVENOUS CONTRAST, PE PROTOCOL DATE OF EXAM: 11/26/2018 20:37 COMPARISON: Chest pain with elevated d-dimer. INDICATION: chest pain, elevated d-dimer. TECHNIQUE: Contrast enhanced chest CT performed during the injection of 75 ml of Isovue-370. Three-dimensional (MIP) reconstructions were performed. FINDINGS: Negative for pulmonary arterial embolus. Thyroid: Incompletely imaged thyroid. Thoracic inlet: No adenopathy. Heart and great vessels: Heart size is normal. Mediastinum and kary: No mediastinal or hilar adenopathy. Lungs and pleura: No effusion, consolidation, or pneumothorax. Breast and axilla: Not diagnostically imaged. Bones and soft tissues: No acute osseous abnormality. Upper abdomen: Postsurgical change from gastric bypass and cholecystectomy. IMPRESSION: Negative for pulmonary arterial embolus. One of the following dose optimization techniques was utilized in the performance of this exam: Automated exposure control; adjustment of the mA and/or kV according to the patient's size; or use of an iterative reconstruction technique. Specific details can be referenced in the facility's radiology CT exam operational policy. Report Dictated By: Luiz Peterson MD at 11/26/2018 9:32 PM Report E-Signed By: Luiz Peterson MD at 11/26/2018 9:49 PM ED Course/Re-evaluation ED Course Patient was examined, history and physical obtained. Differential diagnoses were considered. Patient did make her more couple times that she would feel better she was admitted to the hospital. A CBC, CMP, troponin, EKG, d-dimer, influenza screen were done. The lab results were unremarkable. The infant's screen was negative. D-dimer did come back elevated at 0.83. The CT pulmonary angiogram was done. Patient did request a also some pain medication. She did receive 50 g of normal [address] pulmonary injury was given. I will the pain is likely secondary to chest wall pain. I discussed this with the patient and her mother. Patient was concerned about oriented for pain. With her allergies being to every type of oral pain medication recommended doing Toradol and lidoderm patches. Patient states that she has nausea and vomiting with Percocet swelling to try Percocet was Zofran. We will go ahead and have her take home pack Zofran and Percocet. We will also send a prescription for Percocet, Toradol, Lidoderm patches and Zofran. If she is controlled with the Percocet she stick with Toradol and Lidoderm patches. She is to return to the emergency room physician worsens. Patient states she has an appointment with her primary care provider tomorrow we will have him then. Patient and her mother verbalized understanding and agreement with plan. Decision to Disposition Date: Nov 26, 2018 Decision to Disposition Time: 22:25 Depart Departure Latest Vital Signs Vital Signs Date Time Temp Pulse Resp B/P (MAP) Pulse Ox O2 Delivery O2 Flow Rate FiO2 11/26/18 22:15 85 18 90 11/26/18 22:00 108/70 (83) 11/26/18 19:32 98.1 Room Air Impression: Primary Impression: Chest wall pain Condition: Improved Disposition: HOME OR SELF-CARE Referrals: JANES PACHECO DO (PCP) New Scripts Lidocaine (Lidocaine) 5 % Adh..patch 1 PATCH TD DAILY, #10 PATCH apply in the morning and then remove 12 hours later. Prov: MICHAEL NG 11/26/18 Ketorolac Tromethamine (KETOROLAC TROMETHAMINE) 10 Mg Tab 10 MG PO Q6H, #20 TAB Prov: MICHAEL NG 11/26/18 Ondansetron Hcl (ZOFRAN) 4 Mg Tablet 4 MG PO Q6H PRN for NAUSEA/VOMITING, #20 TAB Prov: MICHAEL NG 11/26/18 Oxycodone Hcl/Acetaminophen (PERCOCET 5-325 MG TABLET) 1 Each Tablet 1 EACH PO Q4-6H PRN for PAIN, #8 TAB Prov: MICHAEL NG 11/26/18 Patient Instructions: Chest Wall Pain (ED) Additional Instructions: Limit activity by pain. Ice the ribs 2-3 times a day for 15-20 minutes. Follow up with your primary care provider tomorrow as scheduled. Take the medications as prescribed. Try the Percocet with the Zofran tonight to see if that helps with the vomiting. If you have uncontrollable vomiting tonight take the Toradol and Lidoderm patches for pain. Return to the ER if condition worsens. MICHAEL NG Nov 26, 2018 19:45
[2018-11-26] MEDS ORDERED: NS(*) 0.9% 1000 ML BAG 1,000 ML IV ONE (20:01)
[2018-11-26] MEDS ORDERED: ASPIRIN 81 MG CHEW PO ONE (20:05)
[2018-11-26 20:19] LABS: PLATELET COUNT, AUTOMATED 290 K/uL (150-450)
[2018-11-26] MEDS ORDERED: fentaNYL CITR 100 MCG/2 ML AMP IVP ONE (20:55)
[2018-11-26] MEDS ORDERED: ONDANSETRON 4 MG/2 ML VIAL IVP ONE (20:55)
[2018-11-26] MEDS ORDERED: IOPAMIDOL 76% 75 ML INFUS BTL 75 ML ONE (21:12)
[2018-11-26] MEDS ORDERED: NS(*) 0.9% 50 ML BAG 50 ML ONE (21:12)
--- NOTE | 2018-11-26 21:43 | EKG ---
FACILITY: [facility] PATIENT NAME: ROSENDA IMRANDA : [id number] MR: [id number] V: [id number] EXAM DATE: ORDERING PHYSICIAN: MICHAEL NG TECHNOLOGIST: ANTONI Pandya Reason : Blood Pressure : / mmHG Vent. Rate : 105 BPM Atrial Rate : 105 BPM P-R Int : 138 ms QRS Dur : 086 ms QT Int : 336 ms P-R-T Axes : 040 044 053 degrees QTc Int : 444 ms Sinus tachycardia Nonspecific T wave abnormality Abnormal ECG When compared with ECG of 24-OCT-2018 14:44, No significant change was found Confirmed by Jorje Sal ([id number]) on 11/26/2018 11:11:34 PM Referred By: Confirmed By:Jorje Batista
--- NOTE | 2018-11-26 21:54 | RADIOLOGY IMAGING REPORT ---
FACILITY: [facility] PATIENT NAME: Alla Echeverria : 1985 MR: [id number] V: [id number] EXAM DATE: ORDERING PHYSICIAN: MICHAEL NG TECHNOLOGIST: Location: [facility] [place] Patient: Alla Echeverria : 1985 Visit/Account:[id number] Date of Sevice: 11/26/2018 CT ANGIOGRAM OF THE CHEST WITH INTRAVENOUS CONTRAST, PE PROTOCOL DATE OF EXAM: 11/26/2018 20:37 COMPARISON: Chest pain with elevated d-dimer. INDICATION: chest pain, elevated d-dimer. TECHNIQUE: Contrast enhanced chest CT performed during the injection of 75 ml of Isovue-370. Three-d imensional (MIP) reconstructions were performed. FINDINGS: Negative for pulmonary arterial embolus. Thyroid: Incompletely imaged thyroid. Thoracic inlet: No adenopathy. Heart and great vessels: Heart size is normal. Mediastinum and kary: No mediastinal or hilar adenopathy. Lungs and pleura: No effusion, consolidation, or pneumothorax. Breast and axilla: Not diagnostically imaged. Bones and soft tissues: No acute osseous abnormality. Upper abdomen: Postsurgical change from gastric bypass and cholecystectomy. IMPRESSION: Negative for pulmonary arterial embolus. One of the following dose optimization techniques was utilized in the performance of this exam: Autom ated exposure control; adjustment of the mA and/or kV according to the patient's size; or use of an i terative reconstruction technique. Specific details can be referenced in the facility's radiology C T exam operational policy. Report Dictated By: Luiz Peterson MD at 11/26/2018 9:32 PM Report E-Signed By: Luiz Peterson MD at 11/26/2018 9:49 PM WSN:[id number]
[2018-11-26 22:00] VITALS: BP 108/70
[2018-11-26] MEDS ORDERED: ONDANSETRON 4 MG ODT TH SL ONE (22:20)
[2018-11-26] MEDS ORDERED: oxyCODONE/ACETAMIN 5/325MG TH 2 TAB/BOTTLE PO ONE (22:20)
[2018-11-26] MEDS ORDERED: LIDO700A19 TD (22:23)
[2018-11-26] MEDS ORDERED: KET10 PO (22:23)
[2018-11-26] MEDS ORDERED: ONDA4TAB97 PO (22:23)
[2018-11-26] MEDS ORDERED: OXYC-865 PO (22:23)
== END 2018-11-26 22:44 | disposition home or self-care (01) ==
LOC: ER 19:51
DX: R07.89 Other chest pain (principal); R00.0 Tachycardia, unspecified
CPT/HCPCS: 84484; 84703; 85025; 85379; 87502; 93005; 96361; 96374; 96375; 99284; A9270; J2405; J3010; J7030; J7050; Q0162; Q9967; 71275; 82040; 82247; 82310; 82374; 82435; 82565; 82947; 84075; 84132; 84155; 84295; 84450; 84460; 84520; S0119

== ENCOUNTER → 2018-12-04 | Outpatient (CLI) | payer MEDICARE, MEDICAID ==
[2015-04-20 10:33] VITALS: BMI 37.1
[~2018-12-04] MED LIST changes: +KET10 PO; +OXYC-865 PO
[2018-12-04 17:12] LABS: PLATELET COUNT, AUTOMATED 287 K/uL (150-450)
== END ==
LOC: LAB 16:44
PROVIDERS: ATTEND Family Medicine
DX: R00.0 Tachycardia, unspecified (principal)
CPT/HCPCS: 36415; 80159; 82040; 82247; 82310; 82374; 82435; 82565; 82947; 84075; 84132; 84155; 84295; 84450; 84460; 84520; 85025; 85651; 86140

== ENCOUNTER → 2018-12-25 | Outpatient (CLI) | payer MEDICARE, MEDICAID ==
[2015-04-20 10:33] VITALS: BMI 37.1
[2018-12-25 13:53] LABS: PLATELET COUNT, AUTOMATED 257 K/uL (150-450)
== END ==
LOC: LAB 13:25
PROVIDERS: ATTEND Family Medicine
DX: R00.0 Tachycardia, unspecified (principal)
CPT/HCPCS: 36415; 80159; 82040; 82247; 82310; 82374; 82435; 82565; 82947; 84075; 84132; 84155; 84295; 84450; 84460; 84520; 85025; 85651; 86140

== ENCOUNTER → 2019-01-04 | Outpatient (CLI) | payer MEDICARE, MEDICAID ==
[2015-04-20 10:33] VITALS: BMI 37.1
[2019-01-04 11:12] LABS: LDL CHOLESTEROL 101 mg/dl
== END ==
LOC: LAB 10:20
PROVIDERS: ATTEND Internal Medicine Cardiovascular Disease
DX: R07.9 Chest pain, unspecified (principal)
CPT/HCPCS: 36415; 82040; 82247; 82310; 82374; 82435; 82465; 82565; 82947; 83718; 84075; 84132; 84155; 84295; 84450; 84460; 84478; 84520; 85027; 85379

== ENCOUNTER → 2019-01-27 | Outpatient (CLI) | payer MEDICARE, MEDICAID ==
[2015-04-20 10:33] VITALS: BMI 37.1
[2019-01-27 13:55] LABS: PLATELET COUNT, AUTOMATED 240 K/uL (150-450)
== END ==
LOC: LAB 13:18
PROVIDERS: ATTEND Psychiatry & Neurology Psychiatry
DX: F25.1 Schizoaffective disorder, depressive type (principal); Z79.899 Other long term (current) drug therapy
CPT/HCPCS: 36415; 85025

== ENCOUNTER → 2019-01-29 | Outpatient (CLI) | payer MEDICARE, MEDICAID ==
[2015-04-20 10:33] VITALS: BMI 37.1
== END ==
LOC: RESP 03:00
PROVIDERS: ATTEND Internal Medicine Cardiovascular Disease
DX: Z02.9 Encounter for administrative examinations, unspecified (principal)

== ENCOUNTER → 2019-02-25 | Outpatient (CLI) | payer MEDICARE, MEDICAID ==
[2015-04-20 10:33] VITALS: BMI 37.1
[2019-02-25 11:53] LABS: PLATELET COUNT, AUTOMATED 248 K/uL (150-450)
== END ==
LOC: LAB 11:12
PROVIDERS: ATTEND Psychiatry & Neurology Psychiatry
DX: F25.1 Schizoaffective disorder, depressive type (principal); Z79.899 Other long term (current) drug therapy
CPT/HCPCS: 36415; 85025

== ENCOUNTER → 2019-03-17 | Outpatient (CLI) | payer MEDICARE, MEDICAID ==
[2015-04-20 10:33] VITALS: BMI 37.1
--- NOTE | 2019-03-18 01:19 | RT STRESS TEST REPORT ---
FACILITY: [facility] [place] PATIENT NAME: ROSENDA MIRANDA : [id number] MR: [id number] V: [id number] EXAM DATE: ORDERING PHYSICIAN: ASHLYN BRAY TECHNOLOGIST: Julianne Acquisition Time: 2019-03-17 14:53:45 Total Exercise Time: 00:05:42 Test Indications: Chest pain Medications: See chart Protocol: LUCAS 2 Max HR: 160 BPM 85% of Pred: 187 BPM Max BP: 120/071 mmHG Max Work Load: 7.[address] T wave changes to indicate ischemia. No arrhythmias were noted during test. Test was halted at patient request due to burning in chest after achieving target heart rate, pain de scribed was not obviously cardiac in nature and appeared to be heart burn. Given negative EKG very likely negative stress test, if concern remains high recommend Lexiscan. Confirmed by Jorje Sal ([id number]) on 03/18/2019 1:19:13 AM Referred By: Overread By: Jorje Batista
== END ==
LOC: RESP 07:35
PROVIDERS: ATTEND Internal Medicine Cardiovascular Disease
DX: R07.9 Chest pain, unspecified (principal)
CPT/HCPCS: 93017

== ENCOUNTER → 2019-03-31 | Outpatient (CLI) | payer MEDICARE, MEDICAID ==
[2015-04-20 10:33] VITALS: BMI 37.1
[2019-03-31 10:46] LABS: PLATELET COUNT, AUTOMATED 267 K/uL (150-450)
== END ==
LOC: LAB 10:27
PROVIDERS: ATTEND Psychiatry & Neurology Psychiatry
DX: F25.1 Schizoaffective disorder, depressive type (principal); Z79.899 Other long term (current) drug therapy
CPT/HCPCS: 36415; 85025

== ENCOUNTER → 2019-04-30 | Outpatient (CLI) | payer MEDICARE, MEDICAID ==
[2015-04-20 10:33] VITALS: BMI 37.1
[2019-04-30 11:55] LABS: PLATELET COUNT, AUTOMATED 262 K/uL (150-450)
== END ==
LOC: LAB 11:40
PROVIDERS: ATTEND Psychiatry & Neurology Psychiatry
DX: F25.1 Schizoaffective disorder, depressive type (principal); Z79.899 Other long term (current) drug therapy
CPT/HCPCS: 36415; 85025